=== PATIENT | female | born 1955 | race Caucasian/White ===

== ENCOUNTER → 2022-01-03 | Outpatient (CLI) | payer MEDICARE, OTHER ==
--- NOTE | 2022-01-04 10:04 | MR ---
EXAMINATION TYPE: MR shoulder RT wo con DATE OF EXAM: 01/03/2022 COMPARISON: Outside right shoulder x-ray November 15, 2021 HISTORY: Right shoulder pain and limited range of motion for nearly one year. TECHNIQUE: Multiplanar, multisequence imaging of the right shoulder is performed without contrast. FINDINGS: Rotator Cuff: Full-thickness retracted tear of the supraspinatus tendon to level of the acromioclavic ular joint. Increased signal distal infraspinatus tendon with near full-thickness tear, few prominent fibers remain intact. Subscapularis tendon intact with surrounding fluid. Moderate to severe general ized atrophy of supraspinatus and infraspinatus muscles. Acromioclavicular Joint: Moderate to severe capsular hypertrophy. Moderate narrowing. Inferior spurri ng from the acromion is seen. Glenohumeral Joint: Moderate to large sized joint effusion. Narrowing with moderate-sized spur inferi or medial aspect of the humeral head. Subchondral cystic change and edema in the superior aspect of t he osseous glenoid. Labrum: Marked increased signal superior labrum extends over 180 degrees consistent with SLAP-type te ar. Biceps Tendon: The long head of biceps is not successfully visualized in normal location within bici pital groove. Bone marrow signal: Subchondral cystic change involving the humeral head. Other: No additional significant abnormality is appreciated. IMPRESSION: Full-thickness retracted tear supraspinatus tendon. Significant tear of the infraspinatus tendon. Moderate muscular atrophy. Moderate to severe degenerative changes as detailed above. Superi or labral tear. Suspected dislocation and/or tear long head of biceps tendon.
== END | disposition home or self-care (01) ==
LOC: RADMRIMAIN 13:51
PROVIDERS: ATTEND Orthopaedic Surgery
DX: M75.111 Incomplete rotator cuff tear or rupture of right shoulder, not specified as traumatic (principal); M62.511 Muscle wasting and atrophy, not elsewhere classified, right shoulder

== ENCOUNTER → 2022-06-28 | Outpatient (CLI) | payer MEDICARE, OTHER ==
--- NOTE | 2022-06-28 17:01 | CT ---
EXAMINATION TYPE: CT brain wo con DATE OF EXAM: 06/28/2022 COMPARISON: None HISTORY: Memory loss, headache, Gait disorder. CT DLP: [address] of the brain was performed. The ventricles, basal cisterns and sulci overlying the cerebral convexities demonstrate mild enlargem ent. There is no evidence for intracranial hemorrhage or sulcal effacement. There is decreased attenuation about the periventricular white matter and deep white matter of both c erebral hemispheres, compatible with chronic small vessel ischemia. Differential diagnosis does inclu de demyelination. No mass effects are seen.No midline shift. Osseous calvarium is intact. If symptoms persist consider MRI. IMPRESSION: 1. Age related atrophic and chronic small vessel ischemic change without acute intracranial process s een at this time.
== END | disposition home or self-care (01) ==
LOC: RADCTMAIN 16:10
PROVIDERS: ATTEND Psychiatry & Neurology Neurology
DX: G31.1 Senile degeneration of brain, not elsewhere classified (principal); I67.82 Cerebral ischemia; R41.3 Other amnesia; R51.9 Headache, unspecified; R26.9 Unspecified abnormalities of gait and mobility
CPT/HCPCS: 70450

== ENCOUNTER 2022-07-11 07:06 | Day surgery (SDC) | payer MEDICARE ==
[2022-07-11] MEDS ORDERED: MIDAZOLAM 2 MG/2 ML VIAL IV PRN (07:14)
[2022-07-11] MEDS ORDERED: DEXAMETHASONE SOD PHOSPHATE 4 MG/ML 1 ML VIAL IV ONE (07:14)
[2022-07-11] MEDS ORDERED: LACTATED RINGERS 1,000 ML IV SCH (07:14)
[2022-07-11] MEDS ORDERED: ONDANSETRON 4 MG/2 ML VIAL IVP ONE (07:14)
--- NOTE | 2022-07-11 07:32 | HP ---
HISTORY AND PHYSICAL DATE OF SURGERY: 07/11/2022. HISTORY OF PRESENT ILLNESS: Margaret Redding is a 67-year-old patient seen with progressive right shoulder pain. Options for treatment were discussed. She elected to proceed with right shoulder arthroscopy. Consent regarding the procedure was obtained. PAST MEDICAL HISTORY: Hypertension, hypothyroidism. PAST SURGICAL HISTORY: Carpal tunnel release, cholecystectomy, hysterectomy, back surgery. DAILY MEDICATIONS: Aspirin, lisinopril, rosuvastatin. ALLERGIES: None. SOCIAL HISTORY: Denies tobacco use. PHYSICAL EVALUATION OF THE RIGHT SHOULDER: Flexion is 80 degrees, abduction is 20 degrees, external rotation 20 degrees with pain and weakness. Tenderness along the anterior lateral acromion and rotator cuff insertion. Impingement is positive at 80 degrees. Drop-arm sign is positive. Cross- body adduction sign is positive. Distal neurovascular exam is intact. RADIOGRAPHS: Right shoulder radiographs revealed a type 2 acromion, acromioclavicular joint osteoarthritis and osteoarthritis involving glenohumeral joint. MRI of right shoulder revealed a retracted rotator cuff tear, SLAP tear, biceps tear. IMPRESSION: 1. Right shoulder impingement with rotator cuff tear. 2. Right shoulder acromioclavicular joint osteoarthritis. 3. Hypertension. 4. Hypothyroidism. PLAN: Right shoulder arthroscopy, subacromial decompression, possible arthroscopic rotator cuff repair, Rachel procedure, biceps tenotomy and debridement. MMODL / IJN: [id number] /
[2022-07-11 08:27] LABS: Basophils # (A) 0.1 k/uL (0-0.2); Basophils % (A) 1 %; Eosinophils # (A) 0.3 k/uL (0-0.7); Eosinophils % (A) 3 %; HCT 41.6 % (34.0-46.0); HGB 13.7 gm/dL (11.4-16.0); Lymphocytes % (A) 38 %; MCH 27.2 pg (25.0-35.0); MCV 82.6 fL (80.0-100.0); Mean Platelet Volume 8.8; Monocytes # (A) 0.4 k/uL (0-1.0); Monocytes % (A) 5 %; Neutrophils % (A) 51 %; Platelet Count 310 k/uL (150-450); RBC 5.03 m/uL (3.80-5.40); RDW 15.3 % (11.5-15.5); WBC 7.9 k/uL (3.8-10.6)
[2022-07-11 08:38] LABS: ALT 32 U/L (4-34); AST 34 U/L (14-36); African American GFR (CKD) >90 (>60 ml/min/1.73 sqM); Albumin 4.2 g/dL (3.5-5.0); Alkaline Phosphatase 120 U/L (38-126); Anion Gap 6 mmol/L; Blood Urea Nitrogen 12 mg/dL (7-17); Calcium 9.1 mg/dL (8.4-10.2); Carbon Dioxide 29 mmol/L (22-30); Chloride 106 mmol/L (98-107); Glucose 91 mg/dL (74-99); Non-African American GFR(CKD) >90 (>60 ml/min/1.73 sqM); Potassium 3.6 mmol/L (3.5-5.1); Sodium 141 mmol/L (137-145); Total Bilirubin 0.7 mg/dL (0.2-1.3); Total Protein 7.1 g/dL (6.3-8.2)
[2022-07-11] MEDS ORDERED: fentaNYL (PF) 50 MCG/1 ML VIAL IVP ONE (08:48)
[2022-07-11] MEDS ORDERED: MIDAZOLAM 2 MG/2 ML VIAL IVP ONE (08:48)
[2022-07-11] MEDS ORDERED: LIDOCAINE 2% INJ 20 MG/ML (2 ML VIAL) ONE (08:57)
[2022-07-11] MEDS ORDERED: MIDAZOLAM 2 MG/2 ML VIAL ONE (08:57)
[2022-07-11] MEDS ORDERED: PROPOFOL 10 MG/ML 20 ML VIAL IV ONE (08:57)
[2022-07-11] MEDS ORDERED: ROPIVACAINE 5 MG/ML 30 ML VIAL ONE (08:57)
[2022-07-11] MEDS ORDERED: SUCCINYLCHOLINE CHLORIDE 200 MG/10 ML VIAL IV ONE (08:57)
[2022-07-11] MEDS ORDERED: fentaNYL (PF) 50 MCG/ML 2 ML AMP ONE (08:57)
--- NOTE | 2022-07-11 10:49 | P.OP ---
Date of Procedure: 07/11/22 Preoperative Diagnosis: Right shoulder impingement Postoperative Diagnosis: 1. Right shoulder rotator cuff tear 2. Right shoulder impingement 3. Right shoulder acromioclavicular joint osteoarthritis Procedure(s) Performed: 1. Right shoulder arthroscopic rotator cuff repair 2. Right shoulder arthroscopic subacromial decompression 3. Right shoulder arthroscopic Rachel procedure Implants: 4Arthrex 4.75 swivel lock anchors Anesthesia: GETA, regional (Interscalene block) Surgeon: Moisés Chopra Machine Operator Transplanter #1: Shahram Duran Estimated Blood Loss (ml): 11 Pathology: none sent Condition: stable Disposition: PACU Indications for Procedure: 67-year-old patient seen with progressive right shoulder pain. After having treatment options discussed, she elected to proceed with arthroscopy. Operative Findings: See description of procedure Description of Procedure: Patient underwent an interscalene block by department of anesthesia. The patient was then taken to the operative suite. The patient underwent a general anesthetic by the department of anesthesia. The patient was placed into a lateral position and secured. There was appropriate padding of the bony p rominence. Right shoulder was then prepped and draped in normal sterile orthopedic fashion. We placed the extremity in 10 pounds of longitudinal traction. A posterior incision was now made for a posterior working portal site. The trocar and cannula were inserted into the glenohumeral joint. Arthroscopy was initiated. Spinal needle was now inserted anteriorly, to ascertain the anterior working portal site. An incision was now made in that area, a trocar was inserted followed by a probe. The biceps tendon was absent. There were grade 3 chondromalacia changes diffusely about the glenohumeral joint. The labrum was somewhat frayed without tears. I could note a very large rotator cuff tendon tear from the glenohumeral joint. I debrided out some of the superficial fraying of the labrum. The residual labrum was probed and was found to be stable. Instruments were now removed from the glenohumeral joint. Utilizing the posterior working portal site, the trocar and cannula were inserted into the subacromial space. Arthroscopy initiated. I made an incision 2 fingerbreadths lateral to the acromion. I introduced my trocar followed by my ArthroCare ablator. I now began ablating thick subacromial bursal tissue, which exposed the undersurface of the anterior acromion. There was diminished subacromial space. There was a very prominent anterior acromion. A motorized bur was introduced and a subacromial decompression was performed. I also excised some osteophytes off the inferior aspect of the distal clavicle. The AC joint was visualized and noted to be fairly arthritic. The motorized bur was introduced in the anterior portal site and a Rachel procedure was performed without difficulty, decompressing the AC joint nicely. I turned my attention to the rotator cuff. There was a 3.5 cm rotator cuff tear with retraction measuring approximately 2 cm. I also noted a intrasubstance tear long the posterior aspect of the supraspinatus tendon. I debrided the margins getting down to stable tendon tissue. I release the tendon proximally. I now could pull the tendon over the footprint area. With the assistance of Noe SIMMS I pasted 2 simple sutures and repaired the intrasubstance tendon tear. I now passed 2 additional simple sutures and converged the large tendon tear centrally. I introduced my motorized bur and abraded the footprint area, getting some petechial bleeding. I now made an accessory portal site off the lateral aspect of the acromion. I punched 2 holes medial for medial row fixation with the assistance of Noe SIMMS carefully tapping the punch with a mallet as I held the punch and the camera. I now introduced both anchors into the pre-punched holes and Noe SIMMS tapped them with the mallet as I held anchors and the camera. Noe SIMMS now screwed the anchors in place a while I held the anchor guide and camera. All 8 limbs of suture were now passed through good bites of rotator cuff tendon. I now punched 2 holes for lateral row fixation again I held the punch and camera while Noe SIMMS used a mallet to tap in the punch. We now passed sutures through both anchors and individually I introduced the anchors into the pre-punch holes I held the anchor guide in position with one hand holding the camera with the other hand while Noe SIMMS tensioned the sutures and screwed in the anchors one at a time. All residual suture limbs were now clipped. We had good compression of the tendon along the entire footprint. Instruments now removed from the portal sites. All portal sites were approximated with nylon suture. Sterile dressings were applied followed by a shoulder immobilizer. Shahram SIMMS assisted in this complex case. The patient was awakened, transferred to a bed, and taken to recovery in stable condition.
[2022-07-11 10:50] VITALS: TEMP 97
--- NOTE | 2022-07-11 12:06 | P.ANPRN ---
Procedure Note - Anesthesia - Nerve Block Performed Right Interscalene Time Out Performed: Yes (08:48) Date of Procedure: 07/11/22 Procedure Start Time: :48 Procedure Stop Time: :53 Location of Patient: PreOp Indication: Acute Post-Operative Pain, Requested by Surgeon (Dr Chopra) Sedation Type: Sedate with meaningful contact maintained Preparation: Sterile Prep Position: Supine Catheter: None Needle Types: Pajunk Needle Gauge: Other (see comment) (22g) Ultrasound used to visualize needle placement: Yes Ultrasound used to observe medication spread: Yes Injectate: 0.5% Ropivacaine (see comment for volume) (20cc) Blood Aspirated: No Pain Paresthesia on Injection Noted: No Resistance on Injection: Normal Image Stored and Saved: Yes Events: Uneventful and Well Tolerated
[2022-07-11 13:22] VITALS: RESP 15
[2022-07-11 14:16] VITALS: BP 145/83; PULSE 80
[2022-07-12] MEDS ORDERED: HYDROmorphone 0.5 MG/0.5 ML SYRINGE IVP PRN (07:00)
== END 2022-07-11 14:54 | disposition home or self-care (01) ==
LOC: OR 07:06
PROVIDERS: ATTEND Orthopaedic Surgery
DX: M75.41 Impingement syndrome of right shoulder (principal); M75.101 Unspecified rotator cuff tear or rupture of right shoulder, not specified as traumatic; M19.011 Primary osteoarthritis, right shoulder; G89.18 Other acute postprocedural pain; I10 Essential (primary) hypertension; E78.5 Hyperlipidemia, unspecified; Z90.710 Acquired absence of both cervix and uterus; Z90.49 Acquired absence of other specified parts of digestive tract; Z79.82 Long term (current) use of aspirin; Z79.899 Other long term (current) drug therapy
CPT/HCPCS: 64415; 80053; 85025; 29827; 29826; 29824; C1894; C1713; J2250; J0330; J1100; J0690; J2405; J3010 ×2; J2795; J2704; J2001

== ENCOUNTER → 2023-02-04 | Outpatient (CLI) | payer MEDICARE ==
--- NOTE | 2023-02-04 20:26 | BD ---
EXAMINATION TYPE: Axial Bone Density DATE OF EXAM: 02/04/2023 CLINICAL HISTORY: 67 years old Female. ICD-10 CODE: M15.9 POLYOSTEOARTH E03.9 HYPOTHY Z79.899 Z00.01 Height: 61 Weight: 196.6 FRAX RISK QUESTIONS: Alcohol (3 or more units per day): no Family History (Parent hip fracture): no Glucocorticoids (More than 3mos): no (Ex: prednisone, prednisolone, methylprednisolone, dexamethasone, and hydrocortisone). History of Fracture in Adulthood: no Secondary Osteoporosis: 1. Type 1 Diabetes: no 2. Hyperthyroidism: no 3. Menopause before 45: no 4. Malnutrition: no 5. Chronic liver disease: no Rheumatoid Arthritis: no Current Tobacco Use: no RISK FACTORS HISTORY OF: Surgery to Spine/Hip(right/left)/Wrist (right/left): no MEDICATIONS: Thyroid Medications: levothyroxine Additional History: EXAM MEASUREMENTS: Bone mineral densitometry was performed using the [employer] System. Bone mineral density as measured about the Lumbar spine is: ----- L1-L4(G/cm2): 1.083 T Score Values are as follows: ----- L1: -0.2 ----- L2: -0.1 ----- L3: -1.3 ----- L4: -1.8 ----- L1-L4: -0.8 Z Score Values are as follows: ----- L1: 0.7 ----- L2: 0.8 ----- L3: -0.4 ----- L4: -1.0 ----- L1-L4: 0.1 Bone mineral density :baseline Bone mineral density about the R hip (g/cm2): 0.825 Bone mineral density about the L hip (g/cm2): 0.795 T Score values are as follows: -----R Neck: -0.7 -----L Neck: -0.8 -----R Total: -1.4 -----L Total: -1.7 Z Score values are as follows: -----R Neck:0 .4 -----L Neck: 0.4 -----R Total: -0.6 -----L Total: -0.8 Bone mineral density : baseline FRAX%s: The graph provided illustrates a 7.6% chance for a major osteoporotic fx and a 0.6% chance fo r the hips probability for fx in 10 years time. IMPRESSION: Osteopenia (T Score between -2.5 and -1). There is slightly increased risk of fracture and the patient may be considered for treatment. Re-Screen 2-5 years. NOTE: T-SCORE=SD OF THE YOUNG ADULT MEAN.
== END | disposition home or self-care (01) ==
LOC: RADBDWWP 14:00
PROVIDERS: ATTEND General Practice
DX: Z00.01 Encounter for general adult medical examination with abnormal findings (principal); M85.88 Other specified disorders of bone density and structure, other site; M15.9 Polyosteoarthritis, unspecified; E03.9 Hypothyroidism, unspecified; Z79.899 Other long term (current) drug therapy; Z78.0 Asymptomatic menopausal state
CPT/HCPCS: 77080

== ENCOUNTER → 2023-02-12 | Outpatient (CLI) | payer MEDICARE ==
--- NOTE | 2023-02-17 11:39 | MR ---
EXAMINATION TYPE: MR shoulder RT wo con DATE OF EXAM: 02/12/2023 COMPARISON: 01/03/2022 HISTORY: Right shoulder pain, Hx Rt shoulder torn meniscus repair July 11, 2022 TECHNIQUE: Multiplanar, multisequence imaging of the right shoulder is performed without contrast. FINDINGS: There are postsurgical changes of rotator cuff repair with screws within the lateral humeral head and resection of the acromium process of the scapula. There is a persistent large glenohumeral joint effusion. There is marked osteoarthritic change of the glenohumeral joint with superior subluxation and hypertrophic spurring of the humeral head. There berry s been significant worsening in the subchondral changes including bone marrow edema and large subchon dral cysts in the humeral head and bony glenoid secondary to the degenerative changes. There has been no change in the deformity of the superior cartilaginous labrum and an intact biceps a nchor is again not identified. This is consistent with a SLAP lesion. There is a complete tear of the supraspinatus tendon with retraction of the musculotendinous junction medially. There is intrasubstance tearing of the infraspinatus tendon with intact fibers extending t o the humeral head attachment unchanged compared to the prior study. There are multiple subchondral cysts in the lateral humeral head. The subscapularis tendon is intact. There is marked abnormal signal intensity and thickening of the long head of the biceps tendon and a ttachment to the superior cartilaginous labrum identified as described above. IMPRESSION: 1. Postsurgical changes of prior attachment of the supraspinatus tendon but the supraspinatus tendon attachment is not identified and there is marked retraction of the musculotendinous junction medially consistent with a persistent or recurrent complete supraspinatus tendon tear. 2. Atrophic infraspinatus muscle and tendon with intrasubstance tears within the musculotendinous babita ction. A few intact fibers extending to the humeral head attachment are again identified as on the pr ior study. 3. Abnormal biceps tendon, biceps anchor and superior glenoid labrum consistent with SLAP injury unch anged compared to previous. 4. Marked interval worsening of the osteoarthritic changes of the glenohumeral joint including superi or subluxation, and marked interval worsening of the subchondral bony changes within the humeral head and bony glenoid. 5. Persistent large joint effusion.
== END | disposition home or self-care (01) ==
LOC: RADMRIMAIN 18:44
PROVIDERS: ATTEND Orthopaedic Surgery
DX: M19.011 Primary osteoarthritis, right shoulder (principal); M25.411 Effusion, right shoulder; M62.511 Muscle wasting and atrophy, not elsewhere classified, right shoulder; M67.813 Other specified disorders of tendon, right shoulder; Z98.890 Other specified postprocedural states

== ENCOUNTER → 2023-04-15 | Outpatient (CLI) | payer MEDICARE | END | disposition home or self-care (01) | LOC: LABPAT 11:30 | PROVIDERS: ATTEND Orthopaedic Surgery | DX: Z01.812 Encounter for preprocedural laboratory examination (principal); Z22.322 Carrier or suspected carrier of Methicillin resistant Staphylococcus aureus; M12.811 Other specific arthropathies, not elsewhere classified, right shoulder | CPT/HCPCS: 87070 ==

== ENCOUNTER 2023-04-30 10:27 | Observation (INO) | payer MEDICARE, OTHER ==
--- NOTE | 2023-04-29 08:12 | P.HPOR ---
History of Present Illness H&P Date: 04/29/23 Chief Complaint: Right shoulder pain and weakness The patient is a 68-year-old female who presents with progressive right shoulder pain and weakness. She underwent previous rotator cuff repair in July 2022. She had adequate postoperative rehabilitation with persistent pain and weakness. She is having significant night symptoms. She has a difficult time trying to raise her arm overhead. Review of Systems As per HPI Past Medical History Past Medical History: Deep Vein Thrombosis (DVT), Hyperlipidemia, Hypertension, Osteoarthritis (OA), Thyroid Disorder Additional Past Medical History / Comment(s): DVT years ago to rt leg. scabs on legs from cats scratches. hx of anemia early 1999. [place] History of Any Multi-Drug Resistant Organisms: None Reported Past Surgical History: Back Surgery, Cholecystectomy, Hysterectomy Additional Past Surgical History / Comment(s): tendons repair rt shoulder. CTS rt wrist, spinal fusion Past Anesthesia/Blood Transfusion Reactions: No Reported Reaction Additional Past Anesthesia/Blood Transfusion Reaction / Comment(s): blood transfusions no issues Smoking Status: Never smoker - Past Family History Sister(s) Family Medical History: Deep Vein Thrombosis (DVT) Medications and Allergies Home Medications Medication Instructions Recorded Confirmed Type Aspirin EC [Ecotrin Low Dose] 81 mg PO DAILY 07/09/22 04/24/23 History Atorvastatin [Lipitor] 20 mg PO HS 07/09/22 04/24/23 History FLUoxetine HCL [PROzac] 40 mg PO DAILY 07/09/22 04/24/23 History Furosemide [Lasix] 40 mg PO DAILY 07/09/22 04/24/23 History Levothyroxine Sodium [Synthroid] 137 mcg PO DAILY 07/09/22 04/24/23 History amLODIPine [Norvasc] 10 mg PO BID 07/09/22 04/24/23 History HYDROcodone/APAP 7.5-325MG [[place] 1 each PO Q6HR PRN #28 tab 07/11/22 04/24/23 Rx 7.5] traMADol HCL 50 mg PO TID 04/24/23 04/24/23 History Allergies Allergy/AdvReac Type Severity Reaction Status Date / Time No Known Allergies Allergy Verified 04/24/23 09:47 Physical Examination - Shoulder right Appearance: effusion Tenderness with palpation: anterior, bicipital groove Pain: with abduction, with forward flexion ROM: forward flexion: 20 degrees (Actively, 120 passively) ROM: internal rotation: lower lumbar ROM: external rotation: 0 degrees Crepitus with motion: Yes Strength: abduction: 3/5 Strength: external rotation: 3/5 Tests: internal impingement tests: positive, external impingment tests: positive Results Patient is a well-developed well-nourished female proximally 5 foot 2, 205 pounds of endomorphic habitus. HEENT exam is nonfocal, neck is supple. She is diffusely tender about the right anterior glenohumeral joint. She has moderate crepitus. She has limited active range of motion. Garland, Neer sign, and speed test are positive. Her distal neurovascular appears otherwise intact in the right upper extremity. - Diagnostic results Shoulder x-ray: image reviewed (3 views of the right shoulder obtained in the office show severe glenohumeral joint space narrowing along with diminished humeral head to acromial distance.) Shoulder MRI: image reviewed (Mounika the right shoulder shows evidence of recurrent right rotator cuff tear with significant retraction. Significant arthropathy of the glenohumeral joint is noted.) Assessment and Plan Assessment: Right rotator cuff arthropathy History of right shoulder arthroscopy with attempted rotator cuff repair Plan: I talked to the patient at length regarding her condition along with treatment options. At this point she is quite symptomatic having both pain and weakness despite adequate conservative measures. She opted to proceed with surgery. We'll plan to proceed with right reverse total shoulder arthroplasty. Risks and benefits were discussed at length in layman's terms. We will likely keep the patient for 23 hour hold postoperatively.
[~2023-04-30 10:27] MED LIST: HYDROmorphone 0.5 MG/0.5 ML SYRINGE IVP PRN; TRANEXAMIC 1,000 MG/100ML-NACL 1,000 MG in SALINE 1 100ML.BAG IVPB PRN
[2023-04-30] MEDS: LACTATED RINGERS 1,000 ML IV SCH (10:44)
[2023-04-30] MEDS: ONDANSETRON 4 MG/2 ML VIAL IVP ONE (11:05)
[2023-04-30] MEDS: DEXAMETHASONE SOD PHOSPHATE 4 MG/ML 1 ML VIAL IV ONE (11:05)
[2023-04-30] MEDS: MELOXICAM 7.5 MG TAB PO PRN (11:05)
[2023-04-30] MEDS: ACETAMINOPHEN TAB 500 MG TAB PO PRN (11:05)
[2023-04-30] MEDS: fentaNYL (PF) 50 MCG/ML 2 ML AMP IVP ONE (11:22)
[2023-04-30] MEDS: MIDAZOLAM 2 MG/2 ML VIAL IVP ONE (11:22)
[2023-04-30] MEDS ORDERED: HYDROcodone/APAP 5-325MG 1 EACH TAB PO PRN (11:47)
[2023-04-30] MEDS ORDERED: ONDANSETRON 4 MG/2 ML VIAL IVP PRN (11:47)
[2023-04-30] MEDS ORDERED: SENNOSIDES-DOCUSATE SODIUM 1 EACH TAB PO PRN (11:47)
[2023-04-30] MEDS ORDERED: MIDAZOLAM 2 MG/2 ML VIAL ONE (12:15)
[2023-04-30] MEDS ORDERED: TRANEXAMIC 1,000 MG/100ML-NACL PREMIX BAG ONE (12:15)
[2023-04-30] MEDS ORDERED: ePHEDrine 50 MG/ML 1 ML VIAL ONE (12:15)
[2023-04-30] MEDS ORDERED: PROPOFOL 10 MG/ML 20 ML VIAL IV ONE (12:15)
[2023-04-30] MEDS ORDERED: PHENYLEPHRINE 10 MG/ML VIAL ONE (12:15)
[2023-04-30] MEDS ORDERED: fentaNYL (PF) 50 MCG/ML 2 ML AMP ONE (12:15)
[2023-04-30] MEDS ORDERED: SUCCINYLCHOLINE CHLORIDE 200 MG/10 ML VIAL IV ONE (12:15)
[2023-04-30] MEDS ORDERED: LIDOCAINE 1% INJ 10MG/ML (20 ML MDV) ONE (12:15)
[2023-04-30] MEDS ORDERED: ROPIVACAINE 5 MG/ML 30 ML VIAL ONE (12:15)
[2023-04-30] MEDS ORDERED: ROCURONIUM 10 MG/ML (5 ML VIAL) IV ONE (12:15)
[2023-04-30] MEDS: ceFAZolin 1,000 MG in SODIUM CHLORIDE 0.9% 1,000 ML IRRIGATION ONE (12:44)
--- NOTE | 2023-04-30 13:37 | P.ANPRN ---
Procedure Note - Anesthesia - Nerve Block Performed Right Interscalene Single Time Out Performed: Yes (1122) Date of Procedure: 04/30/23 Procedure Start Time: Procedure Stop Time: Location of Patient: PreOp Indication: Acute Post-Operative Pain, Requested by Surgeon Specifically requested for management of pain by : Gab Taylor Sedation Type: Sedate with meaningful contact maintained Preparation: Sterile Prep Position: Supine Catheter: None Needle Types: Pajunk Needle Gauge: 21 Ultrasound used to visualize needle placement: Yes Ultrasound used to observe medication spread: Yes Injectate: 0.5% Ropivacaine (see comment for volume) (30cc) Blood Aspirated: No Pain Paresthesia on Injection Noted: No Resistance on Injection: Normal Image Stored and Saved: Yes Events: Uneventful and Well Tolerated
[2023-04-30] MEDS: LACTATED RINGERS 1,000 ML IV ONE (13:45)
--- NOTE | 2023-04-30 14:38 | P.OP ---
Date of Procedure: 04/30/23 Preoperative Diagnosis: Right rotator cuff arthropathy History of right rotator cuff repair Postoperative Diagnosis: Same in addition to a large retracted re-tear Procedure(s) Performed: Right reverse total shoulder arthroplasty Implants: Depuy Delta Xtend size 10 press-fit humeral stem was size 1 body, 38+6 articular surface, 38 mm standard glenosphere with standard base plate. Anesthesia: [facility] Surgeon: Gab Taylor Cardiograph Operator #1: Shahram Duran Estimated Blood Loss (ml): 200 Pathology: none sent Condition: stable Disposition: PACU Indications for Procedure: The patient is a 68-year-old female who presents with progressive right shoulder pain and weakness after undergoing attempted previous rotator cuff repair despite adequate rehabilitation. A discussion of the risks and benefits of operative intervention versus continued conservative measures was made with patient. She opted to proceed with surgery. Operative risks to include infection, neurovascular injury, development of blood clots, fracture, possible instability, possible component loosening/failure and need for subsequent procedures was discussed. Informed consent was obtained. Operative Findings: As below Description of Procedure: The patient was brought to the operating room, and after induction of general anesthesia was placed in a beachchair position. The bony prominences were appropriately padded. I examined the right shoulder. There was moderate lack of passive forward elevation and external rotation. The right upper extremity was prepped and draped in normal fashion. The bony outlines the coracoid process, distal clavicle, and acromion were outlined with a skin marker. A pulse centimeter deltopectoral incision was made lateral to the coracoid process. Skin was incised sharply. Subcutaneous tissues were divided bluntly. Electrocautery was used for hemostasis. The cephalic vein was identified and gently retracted laterally with the deltoid. The deltopectoral was bluntly developed. Subdeltoid adhesions were then released. The self-retaining retractor was placed. The conjoined tendon was retracted medially and the deltoid laterally. The biceps was previously ruptured. Pseudocapsule was excised. The subscapularis was peeled off the lesser tuberosity and tagged with #2 Ethibond suture. The head was then exposed. The shoulder was dislocated. A starting hole was made in line with the humeral shaft. The canal was reamed by hand up to size 10. There was good distal chatter. The cutting guide was then placed. I planned on 20 of retroversion. The humeral head cut was then made. The bone was removed in one fragment. Residual inferomedial osteophytes were removed flush with the [place] cortical bone. Attention was then paid towards preparing the glenoid. An anterior and posterior retractors placed. The labrum was released from the a 12-6 o'clock position. A guidepin was placed in the inferior aspect of the glenoid with the guide slightly tilting inferior. The reamer was used down to a bleeding bony surface. The central peg hole was drilled. The standard baseplate was inserted with good purchase. Inferior, superior, and posterior locking screws the appropriate length were placed. Good purchase was obtained. The 38 mm glenosphere was inserted over a guidewire. This was fully seated. Care was taken to avoid any soft tissue interposition. Attention was then paid towards preparing the proximal humerus. The appropriate broach was placed and 20 of retroversion and was fully seated. An eccentric s ize 1 epiphyseal reamer was utilized. A size 10 stem with a size 1 epiphysis was placed and 20 of retroversion. Trial reduction was obtained with a 38 mm + 6 articular surface. The shoulder was taken through range of motion. Her shoulder was felt to be stable in flexion and extension with internal and external rotation. I felt there was adequate gnosticist of soft tissue tension judging off the conjoined tendon. The shoulder was gently dislocated. The trial components were then removed. The final size 10 press-fit stem along with a size 1 epiphysis was fully seated. There was good rotational stability. The 38 mm + 6 articular surface was impacted. The shoulder again was gently reduced and taken through range of motion. Again it was felt to be stable in all planes. Pulsatile lavage was utilized. The subscapularis was a attached to the lesser tuberosity with #2 Ethibond suture. The deltopectoral interval was closed with interrupted 2-0 Vicryl sutures. The skin was reapproximated with 3- 0 subcuticular Prolene suture. Steri-Strips were applied. A sterile dressing was applied. A sling was placed. The patient was awoken from general anesthesia and transferred to recovery room in good condition. Blood loss was estimated at 200 mL. No complications were incurred. Sponge and needle counts were correct at the end the case. Noe SIMMS assisted during the major components of the case to include exposure, glenoid and humeral preparation, implantation, and closure.
--- NOTE | 2023-04-30 21:09 | XR ---
EXAMINATION TYPE: XR shoulder Limited 1 view RT DATE OF EXAM: 04/30/2023 Comparison: None Clinical History: 68-year-old female s/p right total shoulder arthroplasty Findings: Image shows placement of reverse right shoulder arthroplasty. Both limits very and humeral stem compo nents of the prosthesis appear well seated without prosthetic fracture. Alignment appears appropriate . Soft tissue air related to recent operation. Impression: Uncomplicated postoperative appearance reverse right total shoulder arthroplasty.
--- NOTE | 2023-04-30 21:31 | P.CONS ---
History of Present Illness - Reason for Consult Consult date: 04/30/23 - History of Present Illness Patient is a 68-year-old female with a PMH of hypertension, hyperlipidemia, and hypothyroidism who was admitted for scheduled right shoulder total arthroplasty. The patient underwent the procedure earlier today and was seen postoperatively on the surgical unit. She reported excellent control of her pain at the time of interview, rated at a 1 out of 10 located at the right shoulder. She denied any additional complaints. Denied experiencing chest discomfort, shortness of breath, sore throat, fever, chills, cough, nausea, vomiting, abdominal pain, lower extremity swelling, lower extremity pain. Reports compliance with all her medications at home. Review of systems: Pertinent positives and negatives as discussed in HPI, a complete review of systems was performed and all other systems are negative. Physical examination: Vital signs reviewed General: non toxic, no distress, appears at stated age, normal weight Derm: no unusual rashes/lesions, warm Head: atraumatic, normocephalic, symmetric Eyes: EOMI, no lid lag, anicteric sclera, pupils equal round reactive to light ENT: Nose and ears atraumatic Neck: No cervical lymphadenopathy, trachea midline, supple Mouth: no lip lesion, mucus membranes moist Cardiovascular: S1S2 reg, no murmur, positive dorsalis pedis pulse bilateral, no edema Lungs: CTA bilateral, no rhonchi, no rales, no accessory muscle use Abdominal: soft, nontender to palpation, no guarding Ext: muscle strength 5 out of 5 in all 4 extremities grossly, no gross muscle atrophy, no contractures, right shoulder dressing intact, clean and dry Neuro: CN II-XI grossly intact, no gross focal neuro deficits Psych: Alert, oriented, appropriate affect Assessment: Chronic conditions: Hypertension, hyperlipidemia, hypothyroidism Status post right shoulder total arthroplasty Plan: Continue with home medications including Norvasc, Lipitor, Prozac, Lasix, Synthroid Defer resumption of home dose of aspirin as well as management of pain control and DVT prophylaxis to the primary surgery service We appreciate this opportunity to be involved in this patient's care. We will follow the patient with you. For any further questions, please not hesitate to contact the sound inpatient team. Past Medical History Past Medical History: Deep Vein Thrombosis (DVT), Hyperlipidemia, Hypertension, Osteoarthritis (OA), Thyroid Disorder Additional Past Medical History / Comment(s): DVT years ago to rt leg. scabs on legs from cats scratches. hx of anemia early 1999. [place] History of Any Multi-Drug Resistant Organisms: None Reported Past Surgical History: Back Surgery, Cholecystectomy, Hysterectomy Additional Past Surgical History / Comment(s): tendons repair rt shoulder. CTS rt wrist, spinal fusion Past Anesthesia/Blood Transfusion Reactions: No Reported Reaction Additional Past Anesthesia/Blood Transfusion Reaction / Comm: blood transfusions no issues Past Psychological History: Anxiety, Depression Smoking Status: Never smoker Past Alcohol Use History: None Reported Past Drug Use History: None Reported - Past Family History Sister(s) Family Medical History: Deep Vein Thrombosis (DVT) Medications and Allergies Home Medications Medication Instructions Recorded Confirmed Type Aspirin EC [Ecotrin Low Dose] 81 mg PO DAILY 07/09/22 04/30/23 History Atorvastatin [Lipitor] 20 mg PO HS 07/09/22 04/30/23 History FLUoxetine HCL [PROzac] 40 mg PO DAILY 07/09/22 04/30/23 History Furosemide [Lasix] 40 mg PO DAILY 07/09/22 04/30/23 History Levothyroxine Sodium [Synthroid] 137 mcg PO DAILY 07/09/22 04/30/23 History amLODIPine [Norvasc] 10 mg PO BID 07/09/22 04/30/23 History HYDROcodone/APAP 7.5-325MG [[place] 1 each PO Q6HR PRN #28 tab 07/11/22 04/30/23 Rx 7.5] traMADol HCL 50 mg PO TID 04/24/23 04/30/23 History Allergies Allergy/AdvReac Type Severity Reaction Status Date / Time No Known Allergies Allergy Verified 04/30/23 10:40 Physical Exam Vitals: Vital Signs Temp Pulse Resp BP BP Pulse Ox 04/30/23 18:02 98 F 82 17 107/72 97 04/30/23 17:00 71 16 103/56 96 04/30/23 16:30 73 16 94/51 95 04/30/23 16:00 70 16 92/51 96 04/30/23 15:30 91 16 92/50 97 04/30/23 15:02 90 16 102/57 97 04/30/23 14:47 16 108/57 97 04/30/23 14:32 97 19 101/55 97 04/30/23 11:39 72 16 118/55 98 04/30/23 10:50 98 F 73 16 133/72 98 Intake and Output 04/30/23 04/30/23 04/30/23 06:59 14:59 22:59 Intake Total 1551 Output Total 200 Balance 1351 Intake: IV 1551 Output: Estimated Blood Loss 200 Other: Weight 90.8 kg 90.8 kg
[2023-04-30] MEDS: HYDROcodone/APAP 7.5-325MG 1 EACH TAB PO PRN (23:13)
[2023-04-30] MEDS: HYDROmorphone 1 MG/ML 1 ML SYRINGE IVP PRN (23:53)
[2023-05-01] MEDS: LEVOTHYROXINE 137 MCG TAB PO SCH (06:12)
[2023-05-01 08:36] LABS: Basophils # (A) 0.04 X 10*3/uL (0.00-0.10); Basophils % (A) 0.3 %; Eosinophils # (A) 0.01 X 10*3/uL (0.04-0.35); Eosinophils % (A) 0.1 %; Lymphocytes # (A) 2.33 X 10*3/uL (0.90-5.00); Lymphocytes % (A) 15.4 %; MCH 28.1 pg (27.0-32.0); MCHC 32.4 g/dL (32.0-37.0); MCV 86.7 FL (80.0-97.0); Monocytes # (A) 1.39 X 10*3/uL (0.20-1.00); Monocytes % (A) 9.2 %; NRBC Per 100 WBC 0 X 10*3/uL (0.00-0.01); Neutrophils # (A) 11.31 X 10*3/uL (1.80-7.70); Neutrophils % (A) 74.5 %; Platelet Count 268 X 10*3/uL (140-440); RBC 3.92 X 10*6/uL (4.10-5.20); RDW 13.2 % (11.5-14.5); WBC 15.15 X 10*3/uL (4.50-10.00)
[2023-05-01] MEDS: HYDROmorphone 0.5 MG/0.5 ML SYRINGE IVP PRN (09:26)
[2023-05-01] MEDS: amLODIPine 10 MG TAB PO SCH (09:26)
[2023-05-01] MEDS: FLUoxetine HCL 20 MG CAP PO SCH (09:27)
[2023-05-01] MEDS: FUROSEMIDE 40 MG TAB PO SCH (09:27)
[2023-05-01] MEDS: ASPIRIN 325 MG TAB PO SCH (09:27)
--- NOTE | 2023-05-01 10:29 | P.PN ---
Subjective Progress Note Date: 05/01/23 Principal diagnosis: Status post right reverse total shoulder arthroplasty Patient is evaluated today at bedside, she is resting in her hospital bed. She is dealing with a little bit of pain. She has been up and ambulating to the bathroom. She is utilizing the shoulder sling at this time. She denies headaches, lightheadedness, chest pain or shortness of breath Objective - Vital Signs Vital signs: Vital Signs Temp 98.3 F 05/01/23 06:58 Pulse 73 05/01/23 06:58 Resp 18 05/01/23 06:58 BP 126/77 05/01/23 06:58 Pulse Ox 94 L 05/01/23 06:58 FiO2 Intake & Output 04/30/23 05/01/23 05/01/23 18:59 06:59 18:59 Intake Total 1551 Output Total 200 Balance 1351 Weight 90.8 kg Intake: IV 1551 Output: Estimated Blood Loss 200 Other: # Voids 1 - Exam Right upper extremity: Postoperative bandages in good position and condition, no active drainage. Mild swelling noted to the extremity. Elbow extension and flexion are intact, wrist extension and flexion are intact. Sensory exam to light touch is intact throughout the extremity. Radial and ulnar pulse are 2+ - Labs CBC & Chem 7: 05/01/23 05:43 Labs: Abnormal Lab Results - Last 24 Hours (Table) 05/01/23 Range/Units 05:43 WBC 15.15 H (4.50-10.00) X 10*3/uL RBC 3.92 L (4.10-5.20) X 10*6/uL Hgb 11.0 L (12.0-15.0) g/dL Hct 34.0 L (37.2-46.3) % Immature Gran # 0.07 H (0.00-0.04) X 10*3/uL Neutrophils # 11.31 H (1.80-7.70) X 10*3/uL Monocytes # 1.39 H (0.20-1.00) X 10*3/uL Eosinophils # 0.01 L (0.04-0.35) X 10*3/uL Assessment and Plan Assessment: Postoperative day #1 status post right total shoulder arthroplasty Plan: Pain control, patient still requesting Dilaudid for pain control. Will try to limit that at this time, continue to utilize oral medications DVT prophylaxis, aspirin 325 mg daily Wound care, continue to monitor surgical dressing, will change prior to discharge Utilize arm sling Medical recommendations appreciated Encourage incentive spirometer Discharge planning: Plan for discharge to home on 05/02/2023 pending pain control Time with Patient: Less than 30
--- NOTE | 2023-05-01 14:34 | P.PN ---
Subjective Progress Note Date: 05/01/23 Hospital course: Patient is a very pleasant 68-year-old female with a past medical history of hypertension, hyperlipidemia, hypothyroidism, history of DVT, anxiety with depression, and osteoarthritis. She is currently admitted under orthopedic surgery team status post reverse right total shoulder arthroplasty. Surgical procedure completed by Dr. Taylor on 04/30/2023. We were consulted for medical management throughout patient's hospitalization. Physical exam: Patient seen and fully evaluated at bedside this morning. She reports moderate poorly controlled right shoulder pain. Right arm currently in sling and she denies having any numbness or tingling in extremity. She reports throbbing pain to right shoulder and tightness throughout her arm. Patient denies any other co mplaints, needs, or concerns at this time. Vital signs reviewed and stable. General: Nontoxic, no distress and appears stated age. Derm: Skin warm and dry, normal coloration for ethnicity. Head: Atraumatic, normocephalic and symmetric. Eyes: EOMs intact, no lid lag, and anicteric sclera Mouth: no lip lesions, mucus membranes moist Cardiovascular: regular rate and rhythm with normal S1S2, no murmur, positive posterior tibial pulses bilaterally, and cap refill < 2 seconds. Lungs: Respirations even, regular, and unlabored on room air. Lungs CTA bilaterally, no rhonchi, no rales, no wheezing, and no accessory muscle usage. Abdominal: soft, nontender to palpation, no guarding, no appreciable organomegaly Ext: ROM intact. No gross muscle atrophy, no edema, no contractures Neuro: Speech clear, face symmetrical and CN II-XII grossly intact with no noted focal neuro deficits Psych: Alert and oriented to person, place, time, and situation. Appropriate and pleasant affect. Assessment and Plan of Care: Leukocytosis, reactive secondary to surgical procedure no signs/symptoms of infection at this time. Acute postoperative blood loss anemia, stable and expected finding. -Hemoglobin 11.0. No need for transfusion or further intervention at this time. -WBC count 15.15. Leukocytosis believed to be reactive secondary to surgical procedure. No signs of infection. -We will continue to monitor hemoglobin and WBC count with repeat morning CBC. Hypertension -Continue daily medication regimen with amlodipine 10 mg twice daily. Hypothyroidism -Continue daily medication regimen with levothyroxine sodium 137 mcg daily. Hyperlipidemia -Continue daily medication regimen with atorvastatin 20 mg nightly. Anxiety and depression -Continue daily medication regimen with fluoxetine 40 mg daily. Postoperative pain Status post reverse right total shoulder arthroplasty -Management per primary admitting orthopedic surgery team including DVT prophylaxis, dressing/wound management, pain management, weightbearing and PT of right arm. -Patient currently on DVT prophylaxis with aspirin 325 mg p.o. daily. Data reviewed: -Morning labs reviewed. CBC showing leukocytosis with WBC count of 15.15 and acute postoperative blood loss anemia with hemoglobin of 11.0. -Vital signs reviewed. Blood pressure 126/77, heart rate 73, respiratory rate 18, temp 98.3 F, and SpO2 of 94% on room air. Thank you for allowing us to participate in the care of this pleasant patient. Do not hesitate to contact us with questions. Someone can be reached from the [facility] hospitalist group all hours of the day at [phone] or via [email or web address]. Patient was seen independently by Nurse Pracitioner. This document was prepared using [employer] dictation software. Please allow for errors in social services analyst, while rare they do occur. Patient seen independently by Dorie BARKLEY. I agree with the assessment and plan done by my colleague Dorie BARKLEY. Objective - Vital Signs Vital signs: Vital Signs Temp 98.3 F 05/01/23 06:58 Pulse 73 05/01/23 06:58 Resp 18 05/01/23 06:58 BP 126/77 05/01/23 06:58 Pulse Ox 94 L 05/01/23 06:58 FiO2 Intake & Output 04/30/23 05/01/23 05/01/23 18:59 06:59 18:59 Intake Total 1551 Output Total 200 Balance 1351 Weight 90.8 kg Intake: IV 1551 Output: Estimated Blood Loss 200 Other: # Voids 1 - Labs CBC & Chem 7: 05/02/23 04:40 05/02/23 04:40 Labs: Abnormal Lab Results - Last 24 Hours (Table) 05/01/23 Range/Units 05:43 WBC 15.15 H (4.50-10.00) X 10*3/uL RBC 3.92 L (4.10-5.20) X 10*6/uL Hgb 11.0 L (12.0-15.0) g/dL Hct 34.0 L (37.2-46.3) % Immature Gran # 0.07 H (0.00-0.04) X 10*3/uL Neutrophils # 11.31 H (1.80-7.70) X 10*3/uL Monocytes # 1.39 H (0.20-1.00) X 10*3/uL Eosinophils # 0.01 L (0.04-0.35) X 10*3/uL
[2023-05-01] MEDS: HYDROcodone/APAP 10-325MG 1 EACH TAB PO PRN (17:02)
[2023-05-01] MEDS: ATORVASTATIN 20 MG TAB PO SCH (19:44)
[2023-05-01] MEDS: oxyCODONE-APAP 5-325MG 1 EACH TAB PO PRN (19:45)
[2023-05-02 08:19] VITALS: BP 116/73; PULSE 76; RESP 14; TEMP 98.5
[2023-05-02 08:40] LABS: Calcium 8.5 mg/dL (8.7-10.3); Carbon Dioxide 25.5 mmol/L (21.6-31.8); Chloride 100 mmol/L (96-109); Glucose 115 mg/dL (70-110); Magnesium 2.1 mg/dL (1.5-2.4); Potassium 4.2 mmol/L (3.5-5.5); Sodium 134 mmol/L (135-145)
[2023-05-02 08:51] LABS: HCT 32.9 % (37.2-46.3); HGB 10.3 g/dL (12.0-15.0); MCH 27.5 pg (27.0-32.0); MCHC 31.3 g/dL (32.0-37.0); Mean Platelet Volume 12.9 FL (9.5-12.2); NRBC Per 100 WBC 0 X 10*3/uL (0.00-0.01); Platelet Count 209 X 10*3/uL (140-440); RBC 3.74 X 10*6/uL (4.10-5.20); RDW 13.2 % (11.5-14.5); WBC 12.99 X 10*3/uL (4.50-10.00)
--- NOTE | 2023-05-02 10:02 | P.PN ---
Subjective Progress Note Date: 05/02/23 Principal diagnosis: Status post right reverse total shoulder arthroplasty Patient is evaluated today at bedside, she is resting in her hospital chair. She Pain is better controlled today. We have been utilizing Percocet 5 mg / 325 mg. I did have the conversation with her that we will discontinue use of the [place] at this time. denies headaches, lightheadedness, chest pain or shortness of breath Objective - Vital Signs Vital signs: Vital Signs Temp 98.5 F 05/02/23 07:51 Pulse 76 05/02/23 07:51 Resp 14 05/02/23 07:51 BP 116/73 05/02/23 07:51 Pulse Ox 94 L 05/02/23 07:51 FiO2 Intake & Output 05/01/23 05/02/23 05/02/23 18:59 06:59 18:59 Other: # Voids 2 2 - Exam Right upper extremity: Postoperative dressing was removed today, incision is well-healing. There is some ecchymosis and swelling present. Mild swelling noted to the extremity. Elbow extension and flexion are intact, wrist extension and flexion are intact. Sensory exam to light touch is intact throughout the extremity. Radial and ulnar pulse are 2+ - Labs CBC & Chem 7: 05/02/23 04:40 05/02/23 04:40 Labs: Abnormal Lab Results - Last 24 Hours (Table) 05/02/23 05/02/23 Range/Units 04:40 04:40 WBC 12.99 H (4.50-10.00) X 10*3/uL RBC 3.74 L (4.10-5.20) X 10*6/uL Hgb 10.3 L (12.0-15.0) g/dL Hct 32.9 L (37.2-46.3) % MCHC 31.3 L (32.0-37.0) g/dL MPV 12.9 H (9.5-12.2) FL Sodium 134 L (135-145) mmol/L BUN/Creatinine Ratio 25.00 H (12.00-20.00) Ratio Glucose 115 H (70-110) mg/dL Calcium 8.5 L (8.7-10.3) mg/dL Assessment and Plan Assessment: Postoperative day #2 status post right total shoulder arthroplasty Plan: Pain control, plan for discharge with Percocet 5 mg / 325 mg DVT prophylaxis, aspirin 325 mg daily Wound care, continue to monitor surgical dressing, will change prior to discharge Utilize arm sling Medical recommendations appreciated Encourage incentive spirometer Discharge planning: Stable for discharge home today Time with Patient: Less than 30
--- NOTE | 2023-05-02 10:07 | P.DS ---
Providers Date of admission: 04/30/23 10:28 Expected date of discharge: 05/02/23 Attending physician: Gab Taylor Consults: 04/30/23 11:47 Consult Physician Routine Consulting Provider: Cristy Delacruz Consult Reason/Comments: medical management Do you want consulting provider notified?: Yes Primary care physician: Stated None Hospital Course: Date of admission: 04/30/2023 Date of discharge: 05/02/2023 Admission diagnosis: Status post reverse right total shoulder arthroplasty Discharge diagnosis: Same Attending physician: Dr. Taylor Surgical procedures: Reverse right total shoulder arthroplasty Brief history: Patient is a 68-year-old female with a history of rotator cuff arthropathy right shoulder. At this point patient has failed conservative treatment measures and has opted to proceed with a elective reverse right total shoulder arthroplasty. Hospital course: Details of patient's surgery can be found in operative report. Patient tolerated the procedure well and was subsequently transported to orthopedic floor. Patient's orthopeidc and medical care was provided daily. Patient had daily laboratory tests performed for evaluation of overall blood counts. Patient had daily physical therapy to include strengthening range of motion as well as education with walker ambulation. Patient was treated with aspirin for their postoperative DVT prophylaxis during their inpatient stay. Patient was noted to have a relatively uneventful postoperative course. Patient reported satisfactory pain control with oral pain medications by postoperative day 2. Patient showed satisfactory progress with physical therapy. Patient moved steadily through the program and had no difficulty meeting the goals by postoperative day 2. Given patient's otherwise satisfactory course and having met physical therapy goals, plan is to discharge patient [home] on postoperative day 2. Discharge condition/disposition: Patient will be discharged [home] in stable condition. Discharge medications: Instructions are given on resumption of patient's normal daily medications per primary care recommendation, in addition patient will be prescribed Percocet 5 mg / 325 mg, senna S, aspirin 325 mg. Discharge instructions: 1. Keep incision covered and dry while showering, do not remove tape strips 2. Utilize arm sling 3. Okay to take breaks from the arm sling and utilize basic elbow and wrist exercises 4. Avoid excess lifting with the shoulder 5. Pain medication as needed 6. Aspirin 325 mg daily for DVT prophylaxis 7. Plan [facility] 2 [facility] Procedures: Reverse right total shoulder arthroplasty Patient Condition at Discharge: Good Plan - Discharge Summary Discharge Rx Participant: No New Discharge Prescriptions: New Aspirin 325 mg PO DAILY #30 tab oxyCODONE HCL/ACETAMINOPHEN [Percocet 5-325 mg] 1 tab PO Q6HR PRN 7 Days #28 tab PRN Reason: Pain Sennosides/Docusate Sodium [Senna-S 8.6-50 mg Tablet] 2 each PO DAILY PRN #30 tablet PRN Reason: Constipation Discontinued HYDROcodone/APAP 7.5-325MG [[place] 7.5] 1 each PO Q6HR PRN #28 tab PRN Reason: Pain Aspirin EC [Ecotrin Low Dose] 81 mg PO DAILY No Action Atorvastatin [Lipitor] 20 mg PO HS amLODIPine [Norvasc] 10 mg PO BID FLUoxetine HCL [PROzac] 40 mg PO DAILY Levothyroxine Sodium [Synthroid] 137 mcg PO DAILY Furosemide [Lasix] 40 mg PO DAILY traMADol HCL 50 mg PO TID Discharge Medication List Atorvastatin [Lipitor] 20 mg PO HS 07/09/22 [History] FLUoxetine HCL [PROzac] 40 mg PO DAILY 07/09/22 [History] Furosemide [Lasix] 40 mg PO DAILY 07/09/22 [History] Levothyroxine Sodium [Synthroid] 137 mcg PO DAILY 07/09/22 [History] amLODIPine [Norvasc] 10 mg PO BID 07/09/22 [History] traMADol HCL 50 mg PO TID 04/24/23 [History] Aspirin 325 mg PO DAILY #30 tab 05/02/23 [Rx] Sennosides/Docusate Sodium [Senna-S 8.6-50 mg Tablet] 2 each PO DAILY PRN #30 tablet 05/02/23 [Rx] oxyCODONE HCL/ACETAMINOPHEN [Percocet 5-325 mg] 1 tab PO Q6HR PRN 7 Days #28 tab 05/02/23 [Rx] Follow up Appointment(s)/Referral(s): Silvestre Vizcaino PAC [PHYSICIAN [employer] [facility]] - 2 Weeks Patient Instructions/Handouts: Shoulder Arthroplasty (DC), Shoulder Arthroplasty (GEN) Activity/Diet/Wound Care/Special Instructions: 1. Wound care and infection precautions, keep incision dry and covered while showering, no lotions, creams, moisturizers. No soaking, pools, hot tubs. Do not scrub over incision. 2. Nonweightbearing right upper extremity until follow-up. 3. Ice when necessary. Do not exceed 20 minutes per hour with ice pack. 4. Utilize sling to right upper extremity 5. Pain meds and anticoagulants per prescription. 6. Pain medication has potential to cause constipation. Increase oral fluid and fiber intake. Contact primary care provider if you have not had a bowel movement within 48 hours after discharge. 7. No anti-inflammatory medication until discussed at first post operative visit, this including Motrin, Aleve, Mobic, Diclofenac. 8. Follow up in office at 2 weeks postop with Noe Duran PA-C / Silvestre Vizcaino PA-C 9. Follow up with your primary care doctor 7-10 days after discharge. 10. Contact [facility] with any questions, . Keep incision clean, dry, intact. While showering, cover incision with Saran wrap. Keep Steri-Strips on until follow-up appointment in office in 2 weeks Discharge Disposition: HOME SELF-CARE
--- NOTE | 2023-05-02 11:32 | P.PN ---
Subjective Progress Note Date: 05/02/23 Subjective: Patient seen and examined at bedside. No acute events overnight. Claims that his shoulder pain is improved. Pertinent positives and negatives as discussed above, a complete review of systems was performed and all other systems are negative. Vitals Signs Reviewed. General: Nontoxic, no distress, appears at stated age Derm: Warm, dry Head: Atraumatic, normocephalic, symmetric Eyes: EOMI, no lid lag, anicteric sclera Mouth: No lip lesion, mucus membranes moist Cardiovascular: S1S2 reg, no murmur Lungs: CTA bilateral, no rhonchi, no rales, no accessory muscle use Abdominal: Soft, nontender to palpation, no guarding, no appreciable organomegaly Ext: No gross muscle atrophy, no edema, no contractures, right arm in a sling Neuro: CN II-XI grossly intact, no focal neuro deficits Psych: Alert, oriented, appropriate affect Data Reviewed Today: Pertinent Labs: WBC 12.99, hemoglobin 10.3, sodium 134, creatinine 0.6, magnesium 2.1. Imaging: No new imaging Assessment and Plan: Status post right shoulder surgery Postoperative pain Leukocytosis, anticipated outcome of surgery Acute blood loss anemia, anticipated outcome of surgery DVT prophylaxis, pain management per orthopedic surgery Hypertension Hypothyroidism Hyperlipidemia Anxiety/depression Continue amlodipine 10, levothyroxine 137, atorvastatin 20, fluoxetine 40 Patient is medically optimized for discharge home Thank you for allowing us to participate in the care of this pleasant patient. Do not hesitate to contact us with questions. Someone can be reached from the [facility] hospitalist group all hours of the day at [phone] or via perfect serve. Objective - Vital Signs Vital signs: Vital Signs Temp 98.5 F 05/02/23 07:51 Pulse 76 05/02/23 07:51 Resp 14 05/02/23 07:51 BP 116/73 05/02/23 07:51 Pulse Ox 94 L 05/02/23 07:51 FiO2 Intake & Output 05/01/23 05/02/23 05/02/23 18:59 06:59 18:59 Other: # Voids 2 2 2 - Labs CBC & Chem 7: 05/02/23 04:40 05/02/23 04:40 Labs: Abnormal Lab Results - Last 24 Hours (Table) 05/02/23 05/02/23 Range/Units 04:40 04:40 WBC 12.99 H (4.50-10.00) X 10*3/uL RBC 3.74 L (4.10-5.20) X 10*6/uL Hgb 10.3 L (12.0-15.0) g/dL Hct 32.9 L (37.2-46.3) % MCHC 31.3 L (32.0-37.0) g/dL MPV 12.9 H (9.5-12.2) FL Sodium 134 L (135-145) mmol/L BUN/Creatinine Ratio 25.00 H (12.00-20.00) Ratio Glucose 115 H (70-110) mg/dL Calcium 8.5 L (8.7-10.3) mg/dL
== END 2023-05-02 13:17 | disposition home or self-care (01) ==
LOC: OR 10:27 → 4SSUR 10:28
PROVIDERS: ADMIT Orthopaedic Surgery; ATTEND Orthopaedic Surgery
DX: M12.811 Other specific arthropathies, not elsewhere classified, right shoulder (principal); M25.711 Osteophyte, right shoulder; M75.01 Adhesive capsulitis of right shoulder; G89.18 Other acute postprocedural pain; D62 Acute posthemorrhagic anemia; D72.829 Elevated white blood cell count, unspecified; I10 Essential (primary) hypertension; E78.5 Hyperlipidemia, unspecified; E03.9 Hypothyroidism, unspecified; F32.A Depression, unspecified; F41.9 Anxiety disorder, unspecified; Z86.718 Personal history of other venous thrombosis and embolism; Z79.82 Long term (current) use of aspirin; Z79.890 Hormone replacement therapy; Z79.899 Other long term (current) drug therapy
CPT/HCPCS: 96376; 96365; 96366 ×2; 96375; 97161; 64415; 80048; 83735; 85025; 85027; 73030; 23472; G0378 ×3; C1776; J2250; J1100; J0690 ×3; J2405; J3010; J1170 ×3

== ENCOUNTER → 2023-11-11 | Outpatient (CLI) | payer MEDICARE, OTHER ==
--- NOTE | 2023-11-12 17:09 | MM ---
Reason for Exam: Screening (asymptomatic). Baseline mammogram. Patient History: Menarche at age 7. First Full-Term at age 25. Left ovary removed at age 48. Right ovary removed at age 48. Hysterectomy at age 48. Risk Values: Fernanda 5 year model risk: 2.1%. NCI Lifetime model risk: 6.1%. Prior Study Comparison: Patient's first Mammogram. Tissue Density: There are scattered areas of fibroglandular density. Findings: Analyzed By CAD. There is no suspicious group of microcalcifications or new suspicious mass in either breast. Overall Assessment: Negative, BI-RAD 1 Management: Screening Mammogram of both breasts in 1 year. . Patient should continue monthly self-breast exams. A clinical breast exam by your physician is recommended on an annual basis. This exam should not preclude additional follow-up of suspicious palpable abnormalities. Note on Fernanda scores and lifetime risk: 1. A Fernanda score greater than 3% is considered moderate risk. If this is the case, consider specialist referral to assess eligibility for a risk reducing agent. 2. If overall lifetime risk for the development of breast cancer is 20% or higher, the patient may qualify for future screening with alternating mammogram and breast MRI. Electronically signed and approved by: Dinora Stephenson M.D. Radiologist
== END | disposition home or self-care (01) ==
LOC: RADMAMWWP 12:35
PROVIDERS: ATTEND General Practice
DX: Z12.31 Encounter for screening mammogram for malignant neoplasm of breast
CPT/HCPCS: 77067

== ENCOUNTER → 2024-09-17 | Outpatient (CLI) | payer MEDICARE, OTHER ==
--- NOTE | 2024-09-17 15:54 | XR ---
EXAMINATION TYPE: XR chest 2V DATE OF EXAM: 09/17/2024 3:46 PM COMPARISON: None CLINICAL INDICATION: Female, 69 years old with history of J45.909; H TECHNIQUE: XR chest 2V Frontal and lateral views of the chest. FINDINGS: Lungs/Pleura: There is flattening of the diaphragm with increased lucency of the lungs. No evidence o f pneumothorax, pleural effusion or focal consolidation. Pulmonary vascularity: Unremarkable. Heart/mediastinum: Cardiomediastinal silhouette is unremarkable. Musculoskeletal: No acute osseous pathology. Right shoulder arthroplasty appears intact. IMPRESSION: 1. No acute cardiopulmonary disease process. 2. COPD changes. [facility], , 09/17/2024 3:52 PM
== END | disposition home or self-care (01) ==
LOC: LABPAT 15:06
PROVIDERS: ATTEND Orthopaedic Surgery
DX: Z01.812 Encounter for preprocedural laboratory examination (principal); Z22.322 Carrier or suspected carrier of Methicillin resistant Staphylococcus aureus; M16.11 Unilateral primary osteoarthritis, right hip; J45.909 Unspecified asthma, uncomplicated
CPT/HCPCS: 71046; 86850; 86870; 86900; 86901; 87070

== ENCOUNTER → 2024-09-18 | Outpatient (CLI) | payer MEDICARE, OTHER ==
--- NOTE | 2024-09-18 16:05 | US ---
EXAMINATION TYPE: US thyroid st tissue head/neck DATE OF EXAM: 09/18/2024 COMPARISON: NONE CLINICAL INDICATION: Female, 69 years old with history of E03.9 HYPOTHYROIDISM, UNSPECIFIED; TECHNIQUE: Grayscale and color Doppler imaging of the thyroid gland. FINDINGS: GLAND SIZE: Right Lobe: 3.4x0.8x1.7 cm Overall Parenchyma: heterogeneous Left Lobe: 4.4x0.8x1.1 cm Overall Parenchyma: heterogeneous Isthmus Thickness: 0.4 cm NODULES Slightly limited scan, Rt Gland not well visualized RIGHT: # of nodules measured on right: 0 LEFT: # of nodules measured on left: 1 1. 1.1 X 0.4 x 0.7 cm, mid pole benign cyst ISTHMUS: # of nodules measured in the isthmus: 0 Bilateral neck scanned, no evidence of lymphadenopathy. IMPRESSION: Small and heterogeneous thyroid gland suggesting chronic hypothyroidism. A couple benign cysts are pr esent in the left lobe measuring up to 1.1 cm. [facility], Workstation: [employer], 09/18/2024 4:03 PM
== END | disposition home or self-care (01) ==
LOC: RADUSWWP 15:32
PROVIDERS: ATTEND Internal Medicine
DX: E03.9 Hypothyroidism, unspecified (principal); E07.89 Other specified disorders of thyroid
CPT/HCPCS: 76536

== ENCOUNTER → 2024-09-24 | Outpatient (CLI) | payer MEDICARE, OTHER ==
[~2024-09-24] MED LIST changes: -HYDROmorphone 0.5 MG/0.5 ML SYRINGE IVP PRN; +REGADENOSON 0.4 MG/5 ML SYRINGE IV PRN; -TRANEXAMIC 1,000 MG/100ML-NACL 1,000 MG in SALINE 1 100ML.BAG IVPB PRN
--- NOTE | 2024-09-24 13:53 | CA ---
Lexiscan Nuclear Stress Test Report Name: Margaret Redding Exam Date: 09/24/2024 12:00 Exam Location: [place] Stress Ht (in): 62 Wt (lb): 214 BSA: 1.97 Ordering Phys: Sebastian Noble DO Referring Phys: RODERICK Technologist: NACHO CROUCH Age: 69 Gender: F : 1955 Procedure CPT: Indications: R06.00 ICD-10 Codes: Patient History: DIFFICULTY IN BREATHING, HTN, HYPERCHOLESTEROLEMIA, ASTHMA Medications: THYROXINE,,,, ALBUTEROL,,,, ALENDRONATE,,,, AMLODIPINE,,,, ASA,,,, ATORVASTATIN,,,, FUROSEMIDE,,, Meds past 24 hrs: Pretest Chest Pain: STRESS TEST Lexiscan Protocol Exercise Duration (min:sec): 02:[address] Depressions (mm): Angina Score: Hilliard Score: Resting HR (bpm): 88 Peak HR (bpm): 95 Resting BP (mmHg): 131 / 85 Peak BP (mmHg): 136 / 70 MPHR: 149 Target HR: 127 % MPHR: 64 METS: 1.0 Total Dose: Peak Dose: Atropine: Double Product: 49522 BP Response: Stress Termination: INFUSION COMPLETE Stress Symptoms: NO SYMPTOMS Stress Summary: ECG ANALYSIS Resting ECG: Stress ECG: CONCLUSIONS RESTING EKG: [Normal sinus rhythm, normal EKG] , Heart rate 90 BPM Patient recieved IV infusion of Lexiscan 0.4mg and at peak infusion STRESS EKG showed: [No significant ST-T wave changes diagnostic for ischemia by ST segment analysis] ARRYTHMIAS: [No ectopic rhythms or sustained arrythmias] CONCLUSION: 1. Normal hemodynamic and clinical response to Lexiscan infusion. 2. Non-ischemic EKG response to lexiscan infusion Please refer to the nuclear imaging portion of this stress test for complete interpretation of the study. Dr Arnold Dobson (Electronically Signed) Final Date: 24 September 2024 12:47
--- NOTE | 2024-09-24 22:27 | NM ---
EXAMINATION TYPE: NM stress lexiscan cardiolite DATE OF EXAM: 09/24/2024 COMPARISON: NONE CLINICAL INDICATION: Female, 69 years old with history of R0.600, TECHNIQUE: After the intravenous administration of 9.54 mCi Tc 99m Sestamibi - Cardiolite resting SP ECT images acquired 44 minutes post injection. At peak stress 24.5 mCi Tc 99m Sestamibi - Stress images obtained 33 minutes post injection The patient was stressed with 0.4mg Lexiscan. FINDINGS: No fixed defects are evident. There is diminished radiotracer along the inferior lateral wall on stress images which largely resolv ed on resting images. Stress-induced ischemic change likely present. Wall motion is normal. Ejection fraction is calculated to be 67 %. IMPRESSION: 1. [id number] amount of stress-induced ischemic changes along the inferior lateral apex. [facility], , 09/24/2024 10:25 PM
== END | disposition home or self-care (01) ==
LOC: RADNMMAIN 09-22 08:22
PROVIDERS: ATTEND Internal Medicine
DX: R06.00 Dyspnea, unspecified (principal); E78.00 Pure hypercholesterolemia, unspecified; J45.909 Unspecified asthma, uncomplicated; I10 Essential (primary) hypertension
CPT/HCPCS: 93017; 78452; A9500; J2785

== ENCOUNTER → 2024-10-01 | Outpatient (CLI) | payer MEDICARE, OTHER ==
--- NOTE | 2024-10-01 15:05 | XR ---
EXAMINATION TYPE: XR ribs RT w pa chest xray DATE OF EXAM: 10/01/2024 2:59 PM COMPARISON: 09/17/2024 CLINICAL INDICATION: Female, 69 years old with history of R07.81 Rib pain rt side, TECHNIQUE: Single view of the chest 4 views of the ribs are submitted. FINDINGS: The lungs are clear. No Evidence for pneumothorax. No evidence for focal contusion. Mediastinal st ructures are midline. Evaluation of the ribs fails to demonstrate evidence for displaced rib fractur e or secondary sign of rib fracture. IMPRESSION: Negative study [facility], , 10/01/2024 3:03 PM
== END | disposition home or self-care (01) ==
LOC: RADXRMAIN 14:39
PROVIDERS: ATTEND Internal Medicine
DX: R07.81 Pleurodynia (principal)